=== PATIENT | male | born 1970 | race Caucasian/White ===

== ENCOUNTER 2021-12-08 11:20 | Emergency (ER) | payer BC ==
--- NOTE | 2021-12-08 11:59 | ED Physician Documentation ---
History of Present Illness - Stated complaint Stated Complaint: NAIL ON L INDEX FINGER - Chief complaint Chief Complaint: Trauma Ext - Additonal information Additional information: 51-year-old [id number] male presents emergency department for evaluation of a nail that has penetrated his left index finger between the PIP and DIP joint. Last tetanus 10 to 15 years ago. Review of Systems Constitutional: reports: Reviewed and negative Cardiac: reports: Reviewed and negative Respiratory: reports: Reviewed and negative GI: reports: Reviewed and negative : reports: Reviewed and negative Skin: reports: Other (Nail penetrating through and through the index finger) PD PAST MEDICAL HISTORY - Present Medications Home Medications: Ambulatory Orders Medication Instructions Recorded Confirmed cephALEXin [Keflex] 500 mg PO Q6H #20 cap 12/08/21 PD ED PE EXPANDED - General General: Alert, No acute distress - Extremities Extremities: Left finger(s) (3 inch nail penetrating volar side of index finger thru to the dorsal side between pip and dip joint. Neurovascularly intact.) Results - Vitals Vitals: Vital Signs - 24 hr 12/08/21 11:44 Temperature 36.6 C Heart Rate 81 Respiratory 17 Rate Blood Pressure 146/90 H O2 Saturation 99 Oxygen O2 Source Room air Procedures - FB removal FB location: Subcutaneous FB removal preparation: Local anesthesia-specify (1% lidocaine) Removal method: Irrigated/flushed, Foreceps FB removal aftercare: No complications, Patient tolerated well, Removed successfully PD MEDICAL DECISION MAKING - ED course Complexity details: reviewed results, considered differential, d/w patient ED course: 51-year-old male presents emergency department for evaluation of a nail that was accidentally fired through his left index finger when attempting to fix a nailing gun. Tetanus was updated today. On initial imaging we were uncertain i f the nail had penetrated the bone. Following adequate local anesthesia the nail was easily removed with forceps. Repeat x-ray imaging does not reveal any findings of a bony fracture. The puncture wound was thoroughly irrigated with 500 mL of saline. On reevaluation the patient is able to fully flex and extend the finger with no evidence to suggest tendon injury. Bacitracin and simple bandage applied. Patient will be given cephalexin empirically. We did discuss routine care and emergent return precautions for any concerns of infection Departure - Departure Disposition: 01 Home, Self Care Clinical Impression: Puncture wound, Foreign body (FB) in soft tissue Condition: Stable Record reviewed to determine appropriate education?: Yes Instructions: ED Wound Puncture General Prescriptions: cephALEXin [Keflex] 500 mg PO Q6H #20 cap Comments: Curt archuleta came in today because a nail was accidentally fired through your left index finger. After adequate anesthesia we are able to fully remove the nail. Repeat x-ray imaging does not reveal any findings to suggest a fracture of the bone. Because of the nature of this puncture wound it is high risk for infection. I am sending a prescription for cephalexin to the [facility] in [place]. You should take this 4 times a day for the next 5 days. In general wash your finger with warm soapy water and apply any antibiotic ointment such as bacitracin or Neosporin. Return to the ER if you have any finger redness, swelling increased pain or milky drainage. In general I would expect Tylenol and ibuprofen to be adequate for pain control.
[2021-12-08 12:39] VITALS: BP 175/98
--- NOTE | 2021-12-08 12:40 | XRAY Report ---
PROCEDURE: Finger(s) LT INDICATIONS: penetrated by nail TECHNIQUE: 6 views of the second finger were obtained pre and post male removal COMPARISON: None FINDINGS: Nail traversing the second finger the level of the middle phalanx is noted on primary images. Later i mages show removal of the nail without evidence of osseous fracture. Final images show no radiopaque foreign body IMPRESSION: Metallic nail removal in progress. No evidence of osseous injury or residual radiopaque foreign body at the termination of the exam. Reviewed by: Mckinley Erickson MD on 12/08/2021 11:39 AM RUBENS Approved by: Mckinley Erickson MD on 12/08/2021 11:39 AM RUBENS Station ID: [id number]
[2021-12-08] MEDS: TETANUS/DIPHTHERIA/PERTUSSIS 0.5 ML SYRINGE IM ONE (12:45)
[2021-12-08] MEDS: lidocaine 1% 20 ML MDV SUBQ ONE (12:50)
== END 2021-12-08 12:40 | disposition home or self-care (01) ==
LOC: ED 11:20
DX: S61.241A Puncture wound with foreign body of left index finger without damage to nail, initial encounter (principal); X58.XXXA Exposure to other specified factors, initial encounter; Z23 Encounter for immunization; Z71.85 Encounter for immunization safety counseling
CPT/HCPCS: 90471; 99283